=== PATIENT | male | born 1955 | race Caucasian/White ===

== ENCOUNTER 2017-02-17 08:12 | Emergency (ER) | payer BC ==
[2017-02-17] MEDS ORDERED: Ondansetron 4 MG/2 ML SDV IVPUSH ONE (08:43)
[2017-02-17] MEDS ORDERED: Sodium Chloride 0.9% 10 ML Syringe FLUSH PRN (08:43)
[2017-02-17] MEDS ORDERED: Sodium Chloride 0.9% 1,000 ML IV SCH (08:45)
[2017-02-17] MEDS ORDERED: HYDROmorphone 1 MG/ML Syringe IVPUSH ONE (08:45)
[2017-02-17] MEDS ORDERED: Ketorolac 30 MG/ML SDV IVPUSH ONE (08:50)
--- NOTE | 2017-02-17 08:51 | EDM.PDOC ---
ED HPI GENERAL MEDICAL PROBLEM - General Chief Complaint: Flank Pain Stated Complaint: BACK PAIN Time Seen by Provider: 02/17/17 08:32 Source of Information: Reports: Patient History Limitations: Reports: No Limitations - History of Present Illness INITIAL COMMENTS - FREE TEXT/NARRATIVE: The patient presents with right flank pain. This started this morning at 5:30. He has nausea and vomiting. He has no diarrhea. He has chills but no fever. He denies cough, chest pain, shortness of breath. He has no abdominal pain. He denies a history of kidney stones. He has no other medical problems. Onset: Sudden Duration: Hour(s): (5:30am) Location: Reports: Other (Right flank pain) Quality: Reports: Sharp Severity: Severe Improves with: Reports: None Worsens with: Reports: None Associated Symptoms: Reports: Nausea/Vomiting. Denies: Chest Pain, Cough, Fever /Chills, Headaches, Shortness of Breath Right Flank Pain Score (Numeric/FACES): 10 - Related Data Allergies Allergy/AdvReac Type Severity Reaction Status Date / Time No Known Allergies Allergy Verified 02/17/17 08:39 Home Meds: Home Meds Hydrocodone/Acetaminophen [Hydrocodon-Acetaminophen 5-325] 1 - 2 each PO Q6HR PRN #10 tablet 02/17/17 [Rx] Tamsulosin HCl [Flomax] 0.4 mg PO DAILY #7 cap.er.24h 02/17/17 [Rx] Past Medical History - Past Health History Medical/Surgical History: Denies Medical/Surgical History - Infectious Disease History Infectious Disease History: Reports: Chicken Pox Social & Family History - Tobacco Use Smoking Status *Q: Never Smoker Second Hand Smoke Exposure: No - Recreational Drug Use Recreational Drug Use: No - Living Situation & Occupation Occupation: Employed ED ROS GENERAL - Review of Systems Review Of Systems: See Below Constitutional: Reports: No Symptoms HEENT: Reports: No Symptoms Respiratory: Reports: No Symptoms Cardiovascular: Reports: No Symptoms Endocrine: Reports: No Symptoms GI/Abdominal: Reports: Nausea, Vomiting. Denies: Abdominal Pain, Diarrhea : Reports: No Symptoms Musculoskeletal: Reports: Back Pain (Right flank pain) Skin: Reports: No Symptoms ED EXAM, RENAL/ - Physical Exam Exam: See Below Exam Limited By: No Limitations General Appearance: Alert, No Apparent Distress Ears: Normal External Exam Nose: Normal Inspection Head: Atraumatic, Normocephalic Neck: Normal Inspection Respiratory/Chest: No Respiratory Distress, Lungs Clear, Normal Breath Sounds Cardiovascular: Regular Rate, Rhythm, No Edema, No Murmur GI/Abdominal: Soft, Non-Tender, No Organomegaly, No Mass Back Exam: Normal Inspection Extremities: Normal Inspection Course - Vital Signs Last Recorded V/S: Last Vital Signs Temp 97.5 F 02/17/17 08:30 Pulse 68 02/17/17 09:10 Resp 18 02/17/17 09:10 BP 140/80 02/17/17 09:10 Pulse Ox 96 02/17/17 09:10 - Orders/Labs/Meds Orders: Active Orders 24 hr Category Date Time Status Cardiac Monitoring [RC] . DIRECTED Care 02/17/17 08:43 Active Oxygen Therapy [RC] PRN Care 02/17/17 08:43 Active Peripheral IV Care [RC] . DIRECTED Care 02/17/17 08:44 Active Abdomen Pelvis wo Cont [CT] Stat Exams 02/17/17 08:45 Taken Sodium Chloride 0.9% [Normal Saline] 1,000 ml Med 02/17/17 08:45 Active IV ASDIRECTED Sodium Chloride 0.9% [Saline Flush] Med 02/17/17 08:43 Active 10 ml FLUSH ASDIRECTED PRN ED Antiemetic Medication Reflex [OM.PC] Stat Oth 02/17/17 08:44 Ordered Peripheral IV Insertion Adult [OM.PC] Stat Oth 02/17/17 08:43 Ordered Medication Orders Sodium Chloride (Normal Saline) 1,000 mls @ 125 mls/hr IV ASDIRECTED [place] Last Admin: 02/17/17 08:55 Dose: 125 mls/hr Sodium Chloride (Saline Flush) 10 ml FLUSH ASDIRECTED PRN PRN Reason: Keep Vein Open Last Admin: 02/17/17 08:35 Dose: 10 ml Labs: Laboratory Tests 02/17/17 02/17/17 02/17/17 Range/Units 08:30 08:35 08:35 WBC 9.48 H (4.23-9.07) K/mm3 RBC 5.29 (4.63-6.08) M/mm3 Hgb 15.7 (13.7-17.5) gm/L Hct 47.0 (40.1-51.0) % MCV 88.8 (79.0-92.2) fl MCH 29.7 (25.7-32.2) pg MCHC 33.4 (32.2-35.5) g/dl RDW Std Deviation 42.4 (35.1-43.9) fL Plt Count 314 (163-337) K/mm3 MPV 10.2 (9.4-12.3) fl Neut % (Auto) 90.0 H (34.0-67.9) % Lymph % (Auto) 4.9 L (21.8-53.1) % [place] % (Auto) 4.2 L (5.3-12.2) % Eos % (Auto) 0.5 L (0.8-7.0) Baso % (Auto) 0.2 (0.1-1.2) % Neut # (Auto) 8.53 H (1.78-5.38) K/mm3 Lymph # (Auto) 0.46 L (1.32-3.57) K/mm3 [place] # (Auto) 0.40 (0.30-0.82) K/mm3 Eos # (Auto) 0.05 (0.04-0.54) K/mm3 Baso # (Auto) 0.02 (0.01-0.08) K/mm3 Manual Slide Review Normal smear Sodium 138 (136-145) mEq/L Potassium 4.5 (3.5-5.1) mEq/L Chloride 103 (98-107) mEq/L Carbon Dioxide 25 (21-32) mEq/L Anion Gap 14.5 (5-15) BUN 28 H (7-18) mg/dL Creatinine 1.5 H (0.7-1.3) mg/dL Est Cr Clr Drug Dosing 53.40 mL/min Estimated GFR (MDRD) 48 (>60) mL/min BUN/Creatinine Ratio 18.7 H (14-18) Glucose 123 H (80-115) mg/dL Calcium 9.2 (8.5-10.1) mg/dL Total Bilirubin 0.6 (0.2-1.0) mg/dL AST 28 (15-37) U/L ALT 39 (16-63) U/L Alkaline Phosphatase 118 H (46-116) U/L Total Protein 8.0 (6.4-8.2) g/dl Albumin 4.4 (3.4-5.0) g/dl Globulin 3.6 gm/dL Albumin/Globulin Ratio 1.2 (1-2) Lipase 183 (73-393) U/L Urine Color Yellow (Yellow) Urine Appearance Clear (Clear) Urine pH 7.5 (5.0-8.0) Ur Specific [place] 1.020 (1.005-1.030) Urine Protein 1+ H (Negative) Urine Glucose (UA) Negative (Negative) Urine Ketones Trace H (Negative) Urine Occult Blood Negative (Negative) Urine Nitrite Negative (Negative) Urine Bilirubin Negative (Negative) Urine Urobilinogen 0.2 (0.2-1.0) Ur Leukocyte Esterase Negative (Negative) Urine RBC 0-5 (0-5) /hpf Urine WBC 0-5 (0-5) /hpf Ur Epithelial Cells 0-5 (0-5) /hpf Amorphous Sediment Few H (NOT SEEN) /hpf Urine Bacteria Few (FEW) /hpf Urine Mucus Few (FEW) /hpf Meds: Medications Generic Name Dose Route Start Last Admin Trade Name Freq PRN Reason Stop Dose Admin Sodium Chloride 1,000 mls @ 125 mls/hr 02/17/17 08:45 02/17/17 08:55 Normal Saline IV 125 mls/hr ASDIRECTED [place] Administration Sodium Chloride 10 ml 02/17/17 08:43 02/17/17 08:35 Saline Flush FLUSH 10 ml ASDIRECTED PRN Administration Keep Vein Open Discontinued Medications Generic Name Dose Route Start Last Admin Trade Name Freq PRN Reason Stop Dose Admin Hydromorphone HCl 1 mg 02/17/17 08:45 02/17/17 08:53 Dilaudid IVPUSH 02/17/17 08:46 1 mg ONETIME ONE Administration Ketorolac Tromethamine 30 mg 02/17/17 08:50 02/17/17 09:03 Toradol IVPUSH 02/17/17 08:51 30 mg ONETIME ONE Administration Ondansetron HCl 4 mg 02/17/17 08:43 02/17/17 08:51 Zofran IVPUSH 02/17/17 08:44 4 mg ONETIME ONE Administration - Re-Assessments/Exams Free Text/Narrative Re-Assessment/Exam: 02/17/17 08:50 I ordered an IV NS at 125mL/hr, zofran 4mg IV, dilaudid 1mg IV, toradol 30mg IV , labs, UA and a CT of his abdomen and pelvis without contrast to look for a kidney stone. 02/17/17 10:09 His WBC is elevated at 9.48. His BUN is elevated at 28. His creatinine is elevated at 1.5. His glucose is 123. His lipase is negative. His UA was negative for blood but he did have some ketones. It appears he has a kidney stone in his bladder. I am waiting for the official read. 02/17/17 10:52 The radiologist read the CT as there is mild dilatation of the right external pelvis and proximal right ureter. The right kidney is edematous. However no ureteral calculus. This may be secondary to recent passage of a right ureteral calculus. Calculus in the posterior aspect of the bladder. This may represent recent passage of a urteral calculus. He has the stone in his bladder. I will give him some flomax and a few pain pills and a strainer. Departure - Departure Time of Disposition: 10:55 Disposition: Home, Self-Care 01 Condition: Good Clinical Impression: Ureteric colic, Kidney stone on right side - Discharge Information Prescriptions: Hydrocodone/Acetaminophen [Hydrocodon-Acetaminophen 5-325] 1 - 2 each PO Q6HR PRN #10 tablet PRN Reason: Pain Tamsulosin HCl [Flomax] 0.4 mg PO DAILY #7 cap.er.24h Referrals: French Jauregui MD [Primary Care Provider] - 1 Week Forms: ED Department Discharge Additional Instructions: Drink plenty of fluids. Take the flomax daily for 7 days. Take tylenol or motrin for pain. You may also take a hydrocodone as needed for pain. Please return if you are worse. - My Orders Last 24 Hours: My Active Orders 02/17/17 08:43 Cardiac Monitoring [RC] . DIRECTED Oxygen Therapy [RC] PRN Sodium Chloride 0.9% [Saline Flush] 10 ml FLUSH ASDIRECTED PRN Peripheral IV Insertion Adult [OM.PC] Stat 02/17/17 08:44 Peripheral IV Care [RC] . DIRECTED ED Antiemetic Medication Reflex [OM.PC] Stat 02/17/17 08:45 Abdomen Pelvis wo Cont [CT] Stat Sodium Chloride 0.9% [Normal Saline] 1,000 ml IV ASDIRECTED - Assessment/Plan Last 24 Hours: My Active Orders 02/17/17 08:43 Cardiac Monitoring [RC] . DIRECTED Oxygen Therapy [RC] PRN Sodium Chloride 0.9% [Saline Flush] 10 ml FLUSH ASDIRECTED PRN Peripheral IV Insertion Adult [OM.PC] Stat 02/17/17 08:44 Peripheral IV Care [RC] . DIRECTED ED Antiemetic Medication Reflex [OM.PC] Stat 02/17/17 08:45 Abdomen Pelvis wo Cont [CT] Stat Sodium Chloride 0.9% [Normal Saline] 1,000 ml IV ASDIRECTED
[2017-02-17 11:28] VITALS: BP 133/75
--- NOTE | 2017-02-19 07:26 | CT ---
CT abdomen and pelvis Technique: Multiple axial sections were obtained from above the dome of the diaphragm inferiorly through the pubic symphysis. Intravenous and oral contrast was not utilized. Study has been performed as a ureteral stone protocol. Findings: Right ureter is mildly dilated. This ureteral dilatation occurs down to the bladder. Small calcification is seen on the left side of the bladder measuring approximately 1.5-2 mm. This most likely represents a stone within the bladder from recent stone passage from the right ureter. Small nonobstructing calculus is noted within the lower left kidney measuring less than 2 mm. Ureters show no abnormal calcifications. Small low density abnormality is seen within the dome of the right lobe of the liver measuring about 4 mm which is too small to characterize but most likely due to a minimal cyst. No additional abnormality is identified within the liver. Spleen appears within normal limits. Adrenal glands show no nodule. Pancreas is within normal limits. Gallbladder contains no calcified gallstones. Aorta shows no aneurysmal dilatation. No retroperitoneal adenopathy or mesenteric abnormalities are seen. Appendix is seen which appears normal. No pelvic mass or adenopathy is identified. No free fluid is seen within the abdomen or pelvis. Bone window settings were reviewed which shows disc space narrowing and vacuum phenomena within the L5-S1 disc. Impression: 1. Slightly dilated right ureter down to the bladder. Small calcification within the bladder likely representing right ureteral stone that is passed. 2. Minimal nonobstructing calculus within the inferior left kidney. 3. Other incidental findings as described above. Diagnostic code #3 Agree with preliminary report issued by [employer] ([facility] preliminary report dictated on 02/17/17, 11:22 AM Central Time)
== END 2017-02-17 11:25 | disposition home or self-care (01) ==
LOC: JD.ED 08:12 → SUPCPDRO 08:12 → JD.ED 11:25
DX: N20.2 Calculus of kidney with calculus of ureter (principal)
CPT/HCPCS: 36415; 74176; 80053; 81001; 83690; 85025; 96361; 96374; 96375; 99284; J1170; J1885; J2405; J7040; J7050

== ENCOUNTER 2021-11-03 14:07 | Day surgery (SDC) | payer BC ==
[~2021-11-03 14:07] MED LIST: Cefuroxime 10 MG/ML SYRINGE EYERT SCH; Lidocaine 1% PF 2 ML SDV INJECT SCH; Pilocarpine 4% Ophth Soln 15 ML Bot EYERT SCH
[2021-11-03] MEDS: Polymyxin B/Trimethoprim 10 ML Bottle EYERT SCH ×3 (14:24→16:18)
[2021-11-03] MEDS: Brimonidine 0.2% Ophth Soln 5 ML Bottle EYERT SCH ×3 (14:29→16:18)
[2021-11-03] MEDS: Phenylephrine 2.5% Ophth Soln 2 ML Bot EYERT SCH ×6 (14:35→16:00)
[2021-11-03] MEDS: Tropicamide 1% Ophth Soln 15 ML Bottle EYERT SCH ×4 (14:40→15:25)
[2021-11-03] MEDS: Tetracaine HCl/PF 0.5% 4 ML Bottle EYEBOTH SCH ×4 (15:43→16:05)
[2021-11-03 16:35] VITALS: BP 140/76; PULSE 62
== END 2021-11-03 16:28 | disposition home or self-care (01) ==
LOC: JD.SDS 14:07
PROVIDERS: ATTEND Ophthalmology
DX: H25.813 Combined forms of age-related cataract, bilateral (principal); H16.223 Keratoconjunctivitis sicca, not specified as Sjogren's, bilateral; H02.831 Dermatochalasis of right upper eyelid; H02.834 Dermatochalasis of left upper eyelid; Z87.891 Personal history of nicotine dependence; Z98.890 Other specified postprocedural states; Z79.899 Other long term (current) drug therapy
CPT/HCPCS: 66984; J0697; V2632

== ENCOUNTER 2021-12-08 10:53 | Day surgery (SDC) | payer BC ==
[~2021-12-08 10:53] MED LIST changes: +Cefuroxime 10 MG/ML SYRINGE EYELF SCH; -Cefuroxime 10 MG/ML SYRINGE EYERT SCH; +Pilocarpine 4% Ophth Soln 15 ML Bot EYELF SCH; -Pilocarpine 4% Ophth Soln 15 ML Bot EYERT SCH
[2021-12-08] MEDS: Polymyxin B/Trimethoprim 10 ML Bottle EYELF SCH ×3 (11:55→13:38)
[2021-12-08] MEDS: Brimonidine 0.2% Ophth Soln 5 ML Bottle EYELF SCH ×3 (12:00→13:38)
[2021-12-08] MEDS: Phenylephrine 2.5% Ophth Soln 2 ML Bot EYELF SCH ×6 (12:05→13:26)
[2021-12-08] MEDS: Tropicamide 1% Ophth Soln 15 ML Bottle EYELF SCH ×4 (12:10→12:50)
[2021-12-08] MEDS: Tetracaine HCl/PF 0.5% 4 ML Bottle EYEBOTH SCH ×4 (13:04→13:27)
[2021-12-08 14:12] VITALS: BP 100/85; PULSE 58
== END 2021-12-08 13:49 | disposition home or self-care (01) ==
LOC: JD.SDS 10:53
PROVIDERS: ATTEND Ophthalmology
DX: H25.812 Combined forms of age-related cataract, left eye (principal); Z98.890 Other specified postprocedural states; Z87.891 Personal history of nicotine dependence
CPT/HCPCS: 66984; J0697; V2632